=== PATIENT | male | born 1985 | race African-American/Black ===

== ENCOUNTER 2018-04-29 15:09 | Emergency (ER) | payer SELFPAY ==
[~2018-04-29] VITALS: Ht 175.3 cm; Wt 100.0 kg
[2018-04-29] MEDS ORDERED: KETOROLAC 30MG/ML VIAL IV ONE (16:45)
[2018-04-29] MEDS ORDERED: TETANUS, DIPHTHERIA, PERTUSSIS VAC/PF 0.5ML (>7YR OLD) IM ONE (17:00)
[2018-04-29 17:29] LABS: BASOPHILS % 0.6 % (0.0-2.0); EOSINOPHILS % 4.5 % (0.0-5.0); HEMATOCRIT. 44.8 % (42.0-52.0); HEMOGLOBIN. 14.9 g/dL (14.0-18.0); LYMPHOCYTES % 32.1 % (20.0-50.0); MEAN CORPUSCULAR HEMOGLOBIN 28.3 pg (28.0-32.0); MEAN PLATELET VOLUME 10.3 fl (7.4-10.4); MONOCYTES % 7.3 % (2.0-8.0); NEUTROPHILS % 55.5 % (40.0-76.0); PLATELET 187 x1000/uL (130-400); RED BLOOD CELL COUNT 5.27 mill/uL (4.7-6.1); RED CELL DISTRIBUTION WIDTH 13.5 % (11.6-14.6)
[2018-04-29 17:34] LABS: CHLORIDE 104 mEq/L (98-107)
[2018-04-29 17:52] LABS: CLARITY URINE CLEAR (CLEAR); COLOR URINE YELLOW (YELLOW); KETONES URINE NEGATIVE (NEGATIVE); LEUKOCYTE ESTERASE URINE NEGATIVE (NEGATIVE); NITRITE URINE NEGATIVE (NEGATIVE); OCCULT BLOOD URINE NEGATIVE (NEGATIVE); PH URINE 7.5 (4.5-8.0); PROTEIN URINE NEGATIVE (NEGATIVE); SPECIFIC GRAVITY URINE 1.009 (1.005-1.030); UROBILINOGEN URINE 0.2 E.U./dL (0.2-1.0)
[2018-04-29] MEDS ORDERED: MORPHINE SULFATE 4 MG/ML CPJ (NOT FOR IM USE) IV ONE (18:15)
[2018-04-29] MEDS ORDERED: ONDANSETRON HCL 4MG/2ML INJ IV ONE (18:15)
[2018-04-29] MEDS ORDERED: LORAZEPAM 2MG/ML CPJ IV ONE (18:15)
[2018-04-29] MEDS ORDERED: IOHEXOL-300 100 ML BOTTLE ONE (20:40)
[2018-04-29 21:41] VITALS: BP 172/89
== END 2018-04-29 21:43 | disposition home or self-care (01) ==
LOC: ER 18:36
DX: S16.1XXA Strain of muscle, fascia and tendon at neck level, initial encounter (principal); M54.89 Other dorsalgia; R10.84 Generalized abdominal pain; F12.10 Cannabis abuse, uncomplicated; R03.0 Elevated blood-pressure reading, without diagnosis of hypertension; V43.52XA Car driver injured in collision with other type car in traffic accident, initial encounter; Y93.89 Activity, other specified; Y92.410 Unspecified street and highway as the place of occurrence of the external cause
CPT/HCPCS: 36415; 71045; 72125; 72128; 74177; 80053; 81003; 85025; 90471; 90715; 96374; 96375; 99285; J1885; J2270; J2405; Q9967